=== PATIENT | female | born 1960 | race Caucasian/White ===

== ENCOUNTER 2020-12-07 16:21 | Emergency (ER) | payer BC ==
[~2020-12-07] VITALS: Ht 162.6 cm; Wt 60.1 kg
[2020-12-07] MEDS ORDERED: MORPHINE SULFATE 4 MG/ML DISP.SYRIN. IV ONE ×2 (16:30→19:00)
[2020-12-07] MEDS ORDERED: ONDANSETRON PF 4 MG/2 ML VIAL. IVP ONE ×2 (16:30→19:30)
[2020-12-07] MEDS ORDERED: IOHEXOL 240 MG/ML 50ML VIAL. ONE (17:31)
--- NOTE | 2020-12-07 17:35 | RAD ---
EXAMINATION: Abdominal complete acute radiograph. VIEWS: Single view of the chest and 2 views of the abdomen COMPARISON: None INDICATION: 60 years, Female, abdominal pain. FINDINGS: Borderline dilated loops of small bowel in the left abdomen. Moderate amount of stool throughout the colon. No gross pneumoperitoneum.No abnormal intra-abdominal calcifications. Normal cardiomediastinal silhouette. No focal consolidation, pleural effusion or pneumothorax.No acute process process. Aury cystectomy clips. Surgical clips in the right hemipelvis. IMPRESSION: 1. Borderline dilated loops of small bowel in the left abdomen, may represent mild focal ileus. Consi chriss correlation with ordered CT abdomen and pelvis. 2. No acute cardiopulmonary process. Electronically signed by: Ana Woods MD (12/07/2020 5:33 PM) [id number]
[2020-12-07] MEDS ORDERED: IOHEXOL 300 MG/ML 75 ML VIAL. IV ONE (17:45)
[2020-12-07 17:51] LABS: BASO # 0.1 x10^3/uL (0.0-0.2); BASO % 1 % (0-3); EOS % 0 % (0-3); HEMATOCRIT 38.5 % (36.0-47.0); HEMOGLOBIN 12.7 g/dL (12.0-15.5); LYMPH # 1.2 x10^3/uL (1.0-4.8); LYMPH % 11 % (24-48); MEAN CORPUSCULAR HEMOGLOBIN 27 pg (25-35); MEAN CORPUSCULAR HGB CONC 33 g/dL (31-37); MEAN CORPUSCULAR VOLUME 83 fL (79-100); MONO # 0.6 x10^3/uL (0.0-1.1); MONO % 6 % (0-9); NEUT # 9.3 x10^3uL (1.8-7.7); NEUT % 83 % (31-73); PLATELET COUNT 209 x10^3/uL (140-400); RED BLOOD COUNT 4.64 x10^6/uL (3.50-5.40); RED CELL DISTRIBUTION WIDTH 14.1 % (11.5-14.5); WHITE BLOOD COUNT 11.3 x10^3/uL (4.0-11.0)
[2020-12-07 18:03] LABS: ALBUMIN 3.9 g/dL (3.4-5.0); ALBUMIN/GLOBULIN RATIO 1.3 (1.0-1.7); CALCIUM 8.9 mg/dL (8.5-10.1); CREATININE 0.9 mg/dL (0.6-1.0); GFR 63.9; POTASSIUM 3.6 mmol/L (3.5-5.1); TOTAL BILIRUBIN 0.8 mg/dL (0.2-1.0)
--- NOTE | 2020-12-07 18:45 | RAD ---
Exam: CT of abdomen and pelvis with contrast INDICATION: Abdominal pain, severe right lower quadrant pain TECHNIQUE: Sequential axial images through the abdomen and pelvis obtained following the administrati on of 75 mL of Omni 300 IV contrast. Sagittal and coronal reformatted images were reconstructed from the axial data and reviewed. Exposure: One or more of the following in the visualized dose reduction techniques were utilized for this examination: 1. Automated exposure control 2. Adjustment of the MA and/or KV according to patient size 3. Use of iterative of reconstructive technique Comparisons: None FINDINGS: Heart size is normal. No pericardial effusion. Visualized lung bases are clear. No pleural effusion. Liver, spleen, pancreas and adrenals are unremarkable. Gallbladder surgically absent. No perinephric inflammation or hydronephrosis. No renal or ureteral calculi are identified. Bladder is partially distended and appears thin-walled. Uterus is not enlarged. No abnormal adnexal m ass. Postoperative changes of appendectomy. The stump of the appendix is dilated with adjacent inflammator y changes. There is mild wall thickening of adjacent small bowel loops in the right lower quadrant. R emainder large and small bowel are unremarkable. No free intra-abdominal air or fluid. Abdominal aorta has a normal course and caliber. Abdominal vasculature is patent. No enlarged intra-abdominal lymph nodes are identified. No suspicious osseous lesions or acute fractures. IMPRESSION: Findings concerning for stump appendicitis. The appendiceal stump is dilated with adjacent inflammato ry changes. Mild wall thickening of small bowel loops in the right lower quadrant favored to be react dwayne. Electronically signed by: Tong Jamil MD (12/07/2020 6:43 PM) [facility]
[2020-12-07] MEDS ORDERED: PIPERACILLIN/TAZOBACTAM 3.375 GM in IV NORMAL SALINE 50ML 50 ML IV ONE (19:00)
[2020-12-07] MEDS ORDERED: PIPERACILLIN/TAZOBACTAM 3.375 GM VIAL IV ONE (19:09)
[2020-12-07] MEDS ORDERED: IV NORMAL SALINE 50ML 50 ML ONE ×2 (19:09→19:10)
[2020-12-07 19:48] LABS: BILIRUBIN,URINE NEG (NEG); CLARITY,URINE HAZY; COLOR,URINE YELLOW; GLUCOSE,URINE NEG (NEG); NITRITE,URINE NEG (NEG); UROBILINOGEN,URINE 0.2 mg/dL (0.2 mg/dL)
[2020-12-07 19:49] LABS: BACTERIA,URINE MOD /HPF (0-FEW); RBC,URINE OCC /HPF (0-2); SQUAMOUS EPITHELIAL CELL,UR OCC /LPF; WBC,URINE 20-40 /HPF (0-4)
--- NOTE | 2020-12-07 20:03 | PHYS DOC ---
Past History Past Medical History: No Pertinent History Past Surgical History: Appendectomy, Cholecystectomy Alcohol Use: None Adult General Chief Complaint Chief Complaint: ABDOMINAL PAIN HPI HPI Patient is a [age] year old [sex] who presents with [] Review of Systems Review of Systems Constitutional: Denies fever or chills [] Eyes: Denies change in visual acuity, redness, or eye pain [] HENT: Denies nasal congestion or sore throat [] Respiratory: Denies cough or shortness of breath [] Cardiovascular: No additional information not addressed in HPI [] GI: Denies abdominal pain, nausea, vomiting, bloody stools or diarrhea [] : Denies dysuria or hematuria [] Musculoskeletal: Denies back pain or joint pain [] Integument: Denies rash or skin lesions [] Neurologic: Denies headache, focal weakness or sensory changes [] Endocrine: Denies polyuria or polydipsia [] All other systems were reviewed and found to be within normal limits, except as documented in this note. Current Medications Current Medications Current Medications Medications (Trade) Dose Ordered Sig/Lula Start Time Stop Time Status Last Admin Dose Admin Iohexol (Omnipaque 240 Mg/ml) 50 ml STK-MED ONCE 12/07/20 17:31 12/07/20 17:31 DC Iohexol (Omnipaque 300 Mg/ml) 75 ml 1X ONCE 12/07/20 17:45 12/07/20 17:54 DC 12/07/20 18:32 75 ML Morphine Sulfate (Morphine 4mg Syringe) 4 mg 1X ONCE 12/07/20 19:00 12/07/20 19:01 DC Ondansetron HCl (Zofran) 4 mg 1X ONCE 12/07/20 19:30 12/07/20 19:31 DC 12/07/20 19:28 4 MG Piperacillin Sod/ Tazobactam Sod (Zosyn) 3.375 gm STK-MED ONCE 12/07/20 19:09 12/07/20 19:10 DC Piperacillin Sod/ Tazobactam Sod 3.375 gm/Sodium Chloride 50 ml @ 100 mls/hr 1X ONCE 12/07/20 19:00 12/07/20 19:29 DC 12/07/20 19:14 100 MLS/HR Sodium Chloride 50 ml @ As Directed STK-MED ONCE 12/07/20 19:10 12/07/20 19:10 DC Allergies Allergies Allergies Coded Allergies Type Severity Reaction Last Updated Verified No Known Drug Allergies 12/07/20 No Physical Exam Physical Exam Constitutional: Well developed, well nourished, no acute distress, non-toxic appearance. [] HENT: Normocephalic, atraumatic, bilateral external ears normal, oropharynx moist, no oral exudates, nose normal. [] Eyes: PERRLA, EOMI, conjunctiva normal, no discharge. [] Neck: Normal range of motion, no tenderness, supple, no stridor. [] Cardiovascular:Heart rate regular rhythm, no murmur [] Lungs & Thorax: Bilateral breath sounds clear to auscultation [] Abdomen: Bowel sounds normal, soft, no tenderness, no masses, no pulsatile masses. [] Skin: Warm, dry, no erythema, no rash. [] Back: No tenderness, no CVA tenderness. [] Extremities: No tenderness, no cyanosis, no clubbing, ROM intact, no edema. [] Neurologic: Alert and oriented X 3, normal motor function, normal sensory function, no focal deficits noted. [] Psychologic: Affect normal, judgement normal, mood normal. [] Current Patient Data Vital Signs Vital Signs Date Time Temp Pulse Resp B/P (MAP) Pulse Ox O2 Delivery O2 Flow Rate FiO2 12/07/20 18:57 102 16 126/58 (80) 100 Room Air 12/07/20 16:23 98.2 Lab Results Laboratory Tests Test 12/07/20 17:30 12/07/20 19:18 White Blood Count 11.3 x10^3/uL (4.0-11.0) H Red Blood Count 4.64 x10^6/uL (3.50-5.40) Hemoglobin 12.7 g/dL (12.0-15.5) Hematocrit 38.5 % (36.0-47.0) Mean Corpuscular Volume 83 fL (79-100) Mean Corpuscular Hemoglobin 27 pg (25-35) Mean Corpuscular Hemoglobin Concent 33 g/dL (31-37) Red Cell Distribution Width 14.1 % (11.5-14.5) Platelet Count 209 x10^3/uL (140-400) Neutrophils (%) (Auto) 83 % (31-73) H Lymphocytes (%) (Auto) 11 % (24-48) L Monocytes (%) (Auto) 6 % (0-9) Eosinophils (%) (Auto) 0 % (0-3) Basophils (%) (Auto) 1 % (0-3) Neutrophils # (Auto) 9.3 x10^3uL (1.8-7.7) H Lymphocytes # (Auto) 1.2 x10^3/uL (1.0-4.8) Monocytes # (Auto) 0.6 x10^3/uL (0.0-1.1) Eosinophils # (Auto) 0.0 x10^3/uL (0.0-0.7) Basophils # (Auto) 0.1 x10^3/uL (0.0-0.2) Sodium Level 141 mmol/L (136-145) Potassium Level 3.6 mmol/L (3.5-5.1) Chloride Level 105 mmol/L (98-107) Carbon Dioxide Level 25 mmol/L (21-32) Anion Gap 11 (6-14) Blood Urea Nitrogen 9 mg/dL (7-20) Creatinine 0.9 mg/dL (0.6-1.0) Estimated GFR (Cockcroft-Gault) 63.9 BUN/Creatinine Ratio 10 (6-20) Glucose Level 124 mg/dL (70-99) H Lactic Acid Level 0.8 mmol/L (0.4-2.0) Calcium Level 8.9 mg/dL (8.5-10.1) Total Bilirubin 0.8 mg/dL (0.2-1.0) Aspartate Amino Transferase (AST) 18 U/L (15-37) Alanine Aminotransferase (ALT) 21 U/L (14-59) Alkaline Phosphatase 67 U/L (46-116) Troponin I Quantitative < 0.017 ng/mL (0-0.055) Total Protein 7.0 g/dL (6.4-8.2) Albumin 3.9 g/dL (3.4-5.0) Albumin/Globulin Ratio 1.3 (1.0-1.7) Urine Collection Type Unknown Urine Color Yellow Urine Clarity Hazy Urine pH 7.5 Urine Specific [place] 1.010 Urine Protein Neg (NEG-TRACE) Urine Glucose (UA) Neg mg/dL (NEG) Urine Ketones (Stick) Trace mg/dL (NEG) Urine Blood Trace (NEG) Urine Nitrite Neg (NEG) Urine Bilirubin Neg (NEG) Urine Urobilinogen Dipstick 0.2 mg/dL (0.2 mg/dL) Urine Leukocyte Esterase Mod (NEG) Urine RBC Occ /HPF (0-2) Urine WBC 20-40 /HPF (0-4) Urine Squamous Epithelial Cells Occ /LPF Urine Bacteria Mod /HPF (0-FEW) EKG EKG [] Radiology/Procedures Radiology/Procedures [] Heart Score C/O Chest Pain: No Risk Factors: Risk Factors: DM, Current or recent (<one month) smoker, HTN, HLP, family his tory of CAD, obesity. Risk Scores: Risk Factors: DM, Current or recent (<one month) smoker, HTN, HLP, family history of CAD, obesity. Course & Med Decision Making Course & Med Decision Making Patient care transferred to [place] at checkout pending CT. CT notable for stump appendicitis. Patient given IV fluid resuscitation, made n.p.o., started on antibiotics and given pain medication. Discussed findings with family and advised admission for surgical evaluation. Patient and family stated they would like to be transferred to [facility] as that is where they get their care, and that is where their surgeon is. Discussed patient with [facility] transfer team and surgical team Dr. Rouse who accepted patient to their service. [] Dragon Disclaimer Dragon Disclaimer This electronic medical record was generated, in whole or in part, using a voice recognition dictation system. Departure Departure: Impression: Primary Impression: Appendicitis Disposition: 02 SHORT TERM [facility]OSPITAL Condition: IMPROVED Referrals: OSMAN PACHECO MD (PCP) LANDON THOMAS MD Dec 07, 2020 20:03
[2020-12-07 20:29] VITALS: BP 107/59
--- NOTE | 2020-12-07 20:36 | EKG ---
[address] [address] Test Date: 2020-12-07 Test Time: 18:09:25 Pat Name: REGLA SPENCE Department: Room: Gender: F Sr. Director: HELEN : 1960 Requested By: LANDON THOMAS Order Number: [id number] Reading MD: Measurements Intervals Martin Rate: 100 P: 37 VA: 128 QRS: 62 QRSD: 74 T: 70 QT: 394 QTc: 512 Interpretive Statements SINUS RHYTHM PROLONGED QT NO SPECIFIC ECG ABNORMALITIES RI6.02 No previous ECG available for comparison
== END 2020-12-07 21:53 | disposition short-term general hospital (02) ==
LOC: ER 16:21
DX: K37 Unspecified appendicitis (principal); Z90.89 Acquired absence of other organs; Z90.49 Acquired absence of other specified parts of digestive tract
CPT/HCPCS: 36415; 74022; 74177; 80053; 81001; 83605; 84484; 85025; 87040; 87086; 93005; 96365; 96375; 96376; J2270; J2405; J2543; Q9967; 99285-25